=== PATIENT | female | born 1935 | race Caucasian/White ===

== ENCOUNTER 2018-07-07 12:18 | Inpatient (IN) | payer MEDICARE, MEDICAID ==
[2018-07-07 12:56] LABS: % BASOPHILS 0.7 % (0.0-2.0); % EOSINOPHILS 3.3 % (0.0-5.0); % MONOCYTES 8.3 % (2.0-10.0); % NEUTROPHILS 53.7 % (40.0-80.0); EOSINOPHILE ABSOLUTE 0.2 Th/cmm (0.1-0.4); HEMOGLOBIN 13.1 gm/dL (12-16); LYMPHOCYTE ABSOLUTE 2.3 Th/cmm (1.5-3.0); MEAN CELL VOLUME 82.8 fl (81-100); MEAN CORPUSCULAR HEMOGLOBIN 27.2 pg (27.0-31.0); MEAN CORPUSCULAR HGB CONC 32.8 pg (28.0-36.0); MEAN PLATELET VOLUME 7.1 fl; MONOCYTE ABSOLUTE 0.6 Th/cmm (0.3-1.0); NEUTROPHILE ABSOLUTE 3.8 Th/cmm (1.8-8.0); PLATELET COUNT 349 Th/cmm (150-400); RED BLOOD COUNT 4.83 Mil/cmm (3.80-5.20); RED CELL DISTRIBUTION WIDTH 12.7 % (11.5-20.0); WHITE BLOOD COUNT 6.9 Th/cmm (4.8-10.8)
[2018-07-07 13:28] LABS: URINE SOURCE CLEAN C
[2018-07-07 13:47] LABS: URINE BILIRUBIN NEGATIVE (NEGATIVE); URINE BLOOD NEGATIVE (NEGATIVE); URINE GLUCOSE (UA) NEGATIVE (NEGATIVE); URINE KETONE NEGATIVE (NEGATIVE); URINE LEUKOCYTE ESTERASE TRACE (NEGATIVE); URINE MICROSCOPIC INDICATED? YES; URINE NITRATE NEGATIVE (NEGATIVE); URINE PROTEIN NEGATIVE (NEGATIVE); URINE UROBILINOGEN 0.2 E.U./dL (0.2 - 1.0)
[2018-07-07 13:51] LABS: URINE COLOR YELLOW
[2018-07-07 13:52] LABS: URINE CLARITY HAZY (CLEAR)
[2018-07-07 13:53] LABS: URINE BACTERIA 2+ /hpf (NONE SEEN); URINE EPITHELIAL CELLS MODERATE /lpf (FEW); URINE RBC 0-2 /hpf (0-5)
[2018-07-07 14:01] LABS: AMPHETAMINE URINE NEGATIVE (NEGATIVE); BARBITURATES URINE NEGATIVE (NEGATIVE); BENZODIAZEPINES QUAL URINE NEGATIVE (NEGATIVE); CANNABINOID THC NEGATIVE (NEGATIVE); COCAINE METABOLITE QUAL URINE NEGATIVE (NEGATIVE); METHADONE URINE NEGATIVE (NEGATIVE); METHAMPHETAMINES QUAL URINE NEGATIVE (NEGATIVE); OPIATES (MORPHINE) QUAL. URINE NEGATIVE (NEGATIVE); PHENCYCLIDINE (PCP) URINE NEGATIVE (NEGATIVE); TRICYCLICS (TCA) QUAL. URINE NEGATIVE (NEGATIVE)
[2018-07-07 14:09] LABS: ALB/GLOB RATIO 0.8 (1.0-1.8); ALBUMIN 3.6 gm/dL (3.7-5.3); ANION GAP 16.3 (7.0-16.0); BUN - UREA NITROGEN 16 mg/dL (7-25); CALCIUM SERUM 10.3 mg/dL (8.6-10.3); CHLORIDE 102 mEq/L (98-107); CREATININE - SERUM 0.6 mg/dL (0.6-1.2); GLUCOSE 125 mg/dL (70-105); POTASSIUM SERUM 4.3 mEq/L (3.5-5.1); SODIUM SERUM 139 mEq/L (136-145)
[2018-07-07 14:10] LABS: ALKALINE PHOSPHATASE 71 U/L (34-104); BILIRUBIN,TOTAL 0.2 mg/dL (0.3-1.0); PHOSPHOROUS 3.6 mg/dL (2.5-5.0); SGOT 24 U/L (13-39); SGPT/ALT 23 U/L (7-52)
[2018-07-07 16:50] VITALS: BP 124/64
[2018-07-07 18:00] LABS: CHOLESTEROL 185 mg/dL (<200); HDL -HIGH DENSITY LIPOPROTEIN 37 mg/dL (23-92); TRIGLYCERIDES 268 mg/dL (<150)
--- NOTE | 2018-07-07 18:23 | ED Physician Chart ---
ED Chief Complaint/HPI - Patient Information Date Seen:: 07/07/18 Time Seen:: 12:36 Chief Complaint:: increased agitation History of Present Illness:: increased agitation Allergies:: Allergies Allergy/AdvReac Type Severity Reaction Status Date / Time No Known Allergies Allergy Verified 07/07/18 12:37 Vitals:: Vital Signs - 8 hr 07/07/18 07/07/18 07/07/18 12:36 12:39 13:28 Temp 98 F 98.8 F 98.8 F HR 65 66 68 RR 16 17 16 BP 141/58 139/45 144/55 O2 Sat % 99 97 97 Historian:: Family Member Review:: Nurse's Note Reviewed ED Review of Systems - Review of Systems General/Constitutional: No fever, No chills, No weight loss, No weakness, No diaphoresis, No edema, No loss of appetite Skin: No skin lesions, No rash, No bruising Head: No headache, No light-headedness Eyes: No loss of vision, No pain, No diplopia ENT: No earache, No nasal drainage, No sore throat, No tinnitus Neck: No neck pain, No swelling, No thyromegaly, No stiffness, No mass noted Cardio Vascular: No chest pain, No palpitations, No PND, No orthopnea, No edema Pulmonary: No SOB, No cough, No sputum, No wheezing GI: No nausea, No vomiting, No diarrhea, No pain, No melena, No hematochezia, No constipation, No hematemesis G/U: No dysuria, No frequency, No hematuria Musculoskeletal: No bone or joint pain, No back pain, No muscle pain Endocrine: No polyuria, No polydipsia Psychiatric: Other (dementia) ED Past Medical History - Past Medical History Obtainable: No Past Medical History: DM Psychiatricy History: Dementia Family Medical History - Family Member Mother History Unknown: Yes Ethnicity: Living Status: ED Physical Exam - Physical Examination General/Constitutional: Awake, Well-developed, well-nourished, Alert, No distress, Non-toxic appearing Head: Atraumatic Eyes: Lids, conjuctiva normal, PERRL, EOMI Skin: Nl inspection, No rash, No skin lesions, No ecchymosis, Well hydrated, No lymphadenopathy ENMT: External ears, nose nl Neck: Nontender, No nuchal rigidity Respiratory: Nl effort/Exclusion, Clear to Auscultation, No Wheeze/Rhonchi/Rales Cardio Vascular: RRR, No murmur, gallop, rubs, NL S1 S2 GI: No tenderness/rebounding/guarding, No organomegaly, No hernia, Normal BS's, No mass/bruits Other GI comments:: distended abdomen with rectus diastasis. : No CVA tenderness Extremities: No tenderness or effusion, Full ROM, normal strength in all extremities, No edema Neuro/Psych: Alert/oriented, Mood normal Misc: Normal back ED Labs/Radiology/EKG Results - Lab Results Results: Laboratory Tests 07/07/18 07/07/18 07/07/18 12:46 12:48 12:48 WBC 6.9 RBC 4.83 Hgb 13.1 Hct 40.0 L MCV 82.8 MCH 27.2 MCHC Differential 32.8 RDW 12.7 Plt Count 349 MPV 7.1 Neutrophils % 53.7 Lymphocytes % 34.0 Monocytes % 8.3 Eosinophils % 3.3 Basophils % 0.7 Sodium 139 Potassium 4.3 Chloride 102 Carbon Dioxide 25.0 Anion Gap 16.3 H BUN 16 Creatinine 0.6 Est GFR ( Amer) TNP Est GFR (Non-Af Amer) TNP BUN/Creatinine Ratio 26.7 Glucose 125 H Calcium 10.3 Phosphorus 3.6 Magnesium 2.0 Total Bilirubin 0.2 L AST 24 ALT 23 Alkaline Phosphatase 71 Total Protein 8.0 Albumin 3.6 L Globulin 4.4 Albumin/Globulin Ratio 0.8 L Triglycerides 268 H Cholesterol 185 LDL Cholesterol Direct 110 HDL Cholesterol 37 TSH Urine Source Urine Color Urine Clarity Urine pH Ur Specific [place] Urine Protein Urine Glucose (UA) Urine Ketones Urine Blood Urine Nitrate Urine Bilirubin Urine Urobilinogen Ur Leukocyte Esterase Urine RBC Urine WBC Ur Epithelial Cells Urine Bacteria Urine Opiates Screen Urine Methadone Screen Ur Barbiturates Screen Ur Tricyclics Screen Ur Phencyclidine Scrn Amphetamines Screen U Methamphetamines Scrn U Benzodiazepines Scrn U Cocaine Metab Screen U Cannabinoids Screen 07/07/18 07/07/18 07/07/18 12:48 12:50 12:50 WBC RBC Hgb Hct MCV MCH MCHC Differential RDW Plt Count MPV Neutrophils % Lymphocytes % Monocytes % Eosinophils % Basophils % Sodium Potassium Chloride Carbon Dioxide Anion Gap BUN Creatinine Est GFR ( Amer) Est GFR (Non-Af Amer) BUN/Creatinine Ratio Glucose Calcium Phosphorus Magnesium Total Bilirubin AST ALT Alkaline Phosphatase Total Protein Albumin Globulin Albumin/Globulin Ratio Triglycerides Cholesterol LDL Cholesterol Direct HDL Cholesterol TSH 4.18 Urine Source CLEAN C Urine Color YELLOW Urine Clarity HAZY Urine pH 6.0 Ur Specific [place] 1.015 Urine Protein NEGATIVE Urine Glucose (UA) NEGATIVE Urine Ketones NEGATIVE Urine Blood NEGATIVE Urine Nitrate NEGATIVE Urine Bilirubin NEGATIVE Urine Urobilinogen 0.2 Ur Leukocyte Esterase TRACE H Urine RBC 0-2 Urine WBC 6-10 H Ur Epithelial Cells MODERATE Urine Bacteria 2+ H Urine Opiates Screen NEGATIVE Urine Methadone Screen NEGATIVE Ur Barbiturates Screen NEGATIVE Ur Tricyclics Screen NEGATIVE Ur Phencyclidine Scrn NEGATIVE Amphetamines Screen NEGATIVE U Methamphetamines Scrn NEGATIVE U Benzodiazepines Scrn NEGATIVE U Cocaine Metab Screen NEGATIVE U Cannabinoids Screen NEGATIVE ED Assessment - Assessment General Assessment: PATIENT CLEARED FROM A MEDICAL STANDPOINT FOR GEROPSYCH. HAS A URINARY TRACT INFECTION. MEDICAL M.D. TO MAKE DECISION ON CONTINUED TREATMENT OF UTI. ED Septic Shock - . Is Septic Shock (SBP<90, OR Lactate>4 mmol\L) present?: No - <6hrs of presentation: Vital Signs: Vital Signs - 8 hr 07/07/18 07/07/18 07/07/18 12:36 12:39 13:28 Temp 98 F 98.8 F 98.8 F HR 65 66 68 RR 16 17 16 BP 141/58 139/45 144/55 O2 Sat % 99 97 97 ED Reassessment (Disposition) - Reassessment Reassessment Condition:: Unchanged - Diagnosis Diagnosis:: Increased agitation. Diabetes mellitus. Urinary tract infection. - Patient Disposition Discharge/Transfer:: Acute Care w/in this hosp Admitted to:: [facility] Condition at Disposition:: Stable, Unchanged
[2018-07-07] MEDS: INSULIN ASPART SLIDING SCALE 100 UNITS/ML UNIT SUBQ SCH (20:37)
--- NOTE | 2018-07-07 21:47 | History & Physical ---
ADMIT DATE: 07/07/2018 HISTORY OF PRESENT ILLNESS: The patient known to have history of hypertension, history of diabetes, on multiple medications, history of psychiatric problem, came for increasing agitation, was seen in the Emergency Room, was cleared and was admitted to the Geropsych Unit. The patient had no fever, no chills, no swelling, no other problem. The patient has history of dementia and diabetes and patient is on diabetic medication, hypertension medication as well as Lasix and potassium as well as Namenda. PHYSICAL EXAMINATION: GENERAL: The patient is alert, oriented, well-nourished female, not in acute distress. VITAL SIGNS: Noted. HEAD: Normal. ENT: Normal. NECK: Supple, nontender. LUNGS: Clear. CARDIOVASCULAR SYSTEM: S1, S2 heard. ABDOMEN: Soft. Bowel sounds are heard. CENTRAL NERVOUS SYSTEM: The patient is agitated, confused. LABORATORY DATA: White count was 6.9, triglycerides are high 268, and sugar was high. Urine showed bacteria and evidence of infection. DIAGNOSES: Acute agitation, psychiatric disorder, history of dementia, history of diabetes, history of hypertension, history of urinary tract infection was made. PLAN: The patient was started on antibiotic and I will follow medically and all the medications reconciled. JOB# [id number]
--- NOTE | 2018-07-08 03:28 | Psychiatric Evaluation ---
DATE OF SERVICE: 07/07/2018 SUBJECTIVE: Staff was spoken to. The patient is interviewed. IDENTIFYING DATA: The patient is an 83-year-old woman living with her family. Information obtained directly interviewing the patient and talking to her daughter who happened to be there by the bedside. As per the information, the patient has been having problem with the memory for the past 8 years. Lately, she has been having problem with her irritability and mood swings. The patient's family states that they are not able to deal with the patient, they want the patient to be placed at [place] and the patient has been reported to have urinary tract infection and increased agitation and hence the patient has been admitted over here for stabilization. PAST PSYCHIATRIC HISTORY: None. MEDICAL HISTORY AND PHYSICAL EXAMINATION: Requested by Dr. Rushing. SUBSTANCE ABUSE HISTORY: None. LEGAL PROBLEMS: None at this time. MENTAL STATUS EXAMINATION: The patient is an 83-year-old woman looking her stated age, superficially cooperative. Eye contact is poor. Mood is noted to be irritable. Affect is constricted. The patient has paranoia, but denies any command hallucinations. Insight and judgment at this time are noted to be still impaired. Impulse control is noted to be limited. The patient is still isolative and withdrawn. The patient has short-term as well as long-term memory deficits. DIAGNOSTIC IMPRESSION: AXIS I: IA: Psychosis, not otherwise specified. IB: Dementia and behavioral change, secondary trait. AXIS II: None. AXIS III: As per Dr. Rushing. IMMEDIATE TREATMENT PLAN: The patient is going to be observed on inpatient unit, provided with supportive psychotherapy. The patient is going to be closely monitored and encouraged to verbalize the concerns rather than to act out. Once stabilized, the patient is going to be discharged to [facility] to be followed up on an outpatient basis. JOB# [id number]
[2018-07-08] MEDS: INSULIN ASPART SLIDING SCALE 100 UNITS/ML UNIT SUBQ SCH ×4 (06:31→21:10)
[2018-07-08 07:04] LABS: % BASOPHILS 0.2 % (0.0-2.0); % EOSINOPHILS 4.9 % (0.0-5.0); % MONOCYTES 7.8 % (2.0-10.0); % NEUTROPHILS 59.1 % (40.0-80.0); EOSINOPHILE ABSOLUTE 0.3 Th/cmm (0.1-0.4); HEMATOCRIT 37.5 % (41.0-60); HEMOGLOBIN 12.5 gm/dL (12-16); LYMPHOCYTE ABSOLUTE 1.8 Th/cmm (1.5-3.0); MEAN CELL VOLUME 84.1 fl (81-100); MEAN CORPUSCULAR HEMOGLOBIN 28.1 pg (27.0-31.0); MEAN CORPUSCULAR HGB CONC 33.4 pg (28.0-36.0); MEAN PLATELET VOLUME 7.2 fl; MONOCYTE ABSOLUTE 0.5 Th/cmm (0.3-1.0); NEUTROPHILE ABSOLUTE 3.9 Th/cmm (1.8-8.0); PLATELET COUNT 307 Th/cmm (150-400); RED BLOOD COUNT 4.46 Mil/cmm (3.80-5.20); RED CELL DISTRIBUTION WIDTH 12.4 % (11.5-20.0); WHITE BLOOD COUNT 6.5 Th/cmm (4.8-10.8)
[2018-07-08] MEDS ORDERED: Non-Formulary Item 1 EA (Potassium Chloride [Potassium Chloride] 1 CAP) PO SCH (09:00)
[2018-07-08] MEDS: Potassium Chloride 10 mEq ER Tab PO SCH (09:00)
[2018-07-08] MEDS ORDERED: INSULIN GLARGINE HUM REC ANLOG 10 UNIT SUBQ SCH (09:00)
[2018-07-08] MEDS: Insulin Detemir 100 units/mL 10mL Vial SUBQ SCH (09:13)
--- NOTE | 2018-07-08 15:47 | Progress Notes ---
DATE: 07/08/2018 SUBJECTIVE: Staff was spoken to. The patient is interviewed. Mood is noted to be irritable. Affect is constricted. Insight and judgment at this time are noted to be still impaired. Impulse control is noted to be poor. Coping skills are also noted to be poor. The patient has been having difficult time to cope with the stress. ASSESSMENT: The patient is still depressed and confused. PLAN: To continue the patient with the supportive therapy. I encouraged the patient to verbalize the concerns rather than to act out. [facility]# [id number]
--- NOTE | 2018-07-08 17:29 | Consultation ---
DATE OF CONSULTATION: 07/08/2018 REFERRING PHYSICIAN: Syed Jones MD TYPE OF CONSULTATION: Psychology. HISTORY OF PRESENT ILLNESS: The patient is an 83-year-old female. The following is by record review and by the patient's self-report. The patient is being admitted due to irritability and mood swings. The patient lives with her family at home. The family states that they are having difficulty dealing with the patient and are requesting placement post discharge from [facility] unit. It is reported the patient has a UTI. The patient denied any suicidal ideation, plan or intention. The patient denies any hopelessness or helplessness. PAST MEDICAL HISTORY: Please see history and physical by Dr. Rushing. PAST PSYCHIATRIC HISTORY: Unknown. Records are unavailable. SUBSTANCE ABUSE HISTORY: The patient denies any history. PSYCHOSOCIAL HISTORY: The patient lives with her family at home. The patient states she is confucianist. The patient denied any history of physical or sexual abuse or any current legal problems. The patient did not answer questions about occupational or educational history. MENTAL STATUS EXAMINATION: The patient appears to be her stated age. The patient's attitude is mostly cooperative. Eye contact is fair to poor. Speech is delayed and soft. Mood is somewhat irritable. Affect is constricted. Thought process shows to be concrete. The patient was able to answer simple questions with a yes or no response. The patient denied any auditory or visual hallucinations. The patient denied any suicidal ideation, plan or intention. The patient denies any hopelessness or helplessness. There is evidence of some possible paranoid ideation. This needs further evaluation. The patient's behavior is redirectable on the unit. Impulse control is limited. Concentration is poor. The patient did not participate in the memory assessment. Sensorium is alert and oriented to self only. The patient did not participate in the interpretation of proverbs. Insight is poor. Judgment is compromised. DIAGNOSTIC IMPRESSION: [place] I: 1. Dementia with behavioral disturbance. 2. Provisional diagnosis of psychotic disorder, not otherwise specified. [place] II: Deferred. [place] III: Per Dr. Rushing. TREATMENT PLAN: The patient has been seen by Dr. Jones for psychiatric evaluation and for the management of the patient's psychotropic medications. We will provide supportive psychotherapy to include reality orientation, differentiation and integration. We will provide coping strategies for phase of life issues. We will encourage the patient to discuss with her family regarding possible placement along with the attending physician. We will encourage the patient to be able to demonstrate emotional and self-regulation prior to discharge. The patient seems to be able to respond well to andres-based beliefs for coping. We will recommend possible pastoral counseling as well. Thank you, Dr. Jones, for this consult and the opportunity to participate in this patient's care. [facility]# [id number] [facility]
--- NOTE | 2018-07-08 22:10 | Progress Notes ---
DATE: 07/08/2018 SUBJECTIVE: The patient was seen in the hallways sitting in a Gali chair. The patient appears to be comfortable, poor historian, episodes of forgetfulness, confusion. No behavioral issues noted. Otherwise, the patient appears to be in no acute distress. OBJECTIVE: VITAL SIGNS: Temperature is 97.2, heart rate of 62, blood pressure 126/52, respirations 20, 98% on room air. HEENT: Head is atraumatic and normocephalic. Eyes: Bilateral conjunctivae are clear. Bilateral pupils are equally round and reactive. NECK: Supple. No JVD. CARDIOVASCULAR: S1 and S2, without murmur. PULMONARY: Clear to auscultation. GASTROINTESTINAL: Soft and nontender without guarding. Positive bowel sounds. MUSCULOSKELETAL: No clubbing. No cyanosis noted. ASSESSMENT: 1. Dementia. 2. Diabetes. 3. Hypertension. 4. Arthritis. PLAN: We will continue to keep the patient inpatient. We will follow up with the psychiatrist to monitor the patient's condition and behavior. Treatment plans were discussed with the patient's nurse. Treatment plans were discussed with Dr. Rushing. JOB# [id number]
[2018-07-09] MEDS: INSULIN ASPART SLIDING SCALE 100 UNITS/ML UNIT SUBQ SCH ×4 (06:36→20:20)
--- NOTE | 2018-07-09 08:20 | Internal Medicine Prog Note ---
Internal Medicine Subjective - Subjective Patient seen and examined:: chart reviewed Patient is:: awake, confused Per staff patient has:: tolerating meds Internal Medicine Objective - Results Result Diagrams: 07/08/18 06:44 07/07/18 12:48 Recent Labs: Laboratory Last Values WBC 6.5 Th/cmm (4.8-10.8) 07/08/18 06:44 RBC 4.46 Mil/cmm (3.80-5.20) 07/08/18 06:44 Hgb 12.5 gm/dL (12-16) 07/08/18 06:44 Hct 37.5 % (41.0-60) L 07/08/18 06:44 MCV 84.1 fl (81-100) 07/08/18 06:44 MCH 28.1 pg (27.0-31.0) 07/08/18 06:44 MCHC Differential 33.4 pg (28.0-36.0) 07/08/18 06:44 RDW 12.4 % (11.5-20.0) 07/08/18 06:44 Plt Count 307 Th/cmm (150-400) 07/08/18 06:44 MPV 7.2 fl 07/08/18 06:44 Neutrophils % 59.1 % (40.0-80.0) 07/08/18 06:44 Lymphocytes % 28.0 % (20.0-50.0) 07/08/18 06:44 Monocytes % 7.8 % (2.0-10.0) 07/08/18 06:44 Eosinophils % 4.9 % (0.0-5.0) 07/08/18 06:44 Basophils % 0.2 % (0.0-2.0) 07/08/18 06:44 Sodium 139 mEq/L (136-145) 07/07/18 12:48 Potassium 4.3 mEq/L (3.5-5.1) 07/07/18 12:48 Chloride 102 mEq/L (98-107) 07/07/18 12:48 Carbon Dioxide 25.0 mEq/L (21.0-31.0) 07/07/18 12:48 Anion Gap 16.3 (7.0-16.0) H 07/07/18 12:48 BUN 16 mg/dL (7-25) 07/07/18 12:48 Creatinine 0.6 mg/dL (0.6-1.2) 07/07/18 12:48 Est GFR ( Amer) TNP 07/07/18 12:48 Est GFR (Non-Af Amer) TNP 07/07/18 12:48 BUN/Creatinine Ratio 26.7 07/07/18 12:48 Glucose 125 mg/dL (70-105) H 07/07/18 12:48 Calcium 10.3 mg/dL (8.6-10.3) 07/07/18 12:48 Phosphorus 3.6 mg/dL (2.5-5.0) 07/07/18 12:48 Magnesium 2.0 mg/dL (1.9-2.7) 07/07/18 12:48 Total Bilirubin 0.2 mg/dL (0.3-1.0) L 07/07/18 12:48 AST 24 U/L (13-39) 07/07/18 12:48 ALT 23 U/L (7-52) 07/07/18 12:48 Alkaline Phosphatase 71 U/L (34-104) 07/07/18 12:48 Total Protein 8.0 gm/dL (6.0-8.3) 07/07/18 12:48 Albumin 3.6 gm/dL (3.7-5.3) L 07/07/18 12:48 Globulin 4.4 gm/dL 07/07/18 12:48 Albumin/Globulin Ratio 0.8 (1.0-1.8) L 07/07/18 12:48 Triglycerides 268 mg/dL (<150) H 07/07/18 12:46 Cholesterol 185 mg/dL (<200) 07/07/18 12:46 LDL Cholesterol Direct 110 mg/dL (75-193) 07/07/18 12:46 HDL Cholesterol 37 mg/dL (23-92) 07/07/18 12:46 TSH 4.18 uIU/ml (0.34-5.60) 07/07/18 12:48 Urine Source CLEAN C 07/07/18 12:50 Urine Color YELLOW 07/07/18 12:50 Urine Clarity HAZY (CLEAR) 07/07/18 12:50 Urine pH 6.0 (4.6 - 8.0) 07/07/18 12:50 Ur Specific [place] 1.015 (1.005-1.030) 07/07/18 12:50 Urine Protein NEGATIVE mg/dL (NEGATIVE) 07/07/18 12:50 Urine Glucose (UA) NEGATIVE mg/dL (NEGATIVE) 07/07/18 12:50 Urine Ketones NEGATIVE mg/dL (NEGATIVE) 07/07/18 12:50 Urine Blood NEGATIVE (NEGATIVE) 07/07/18 12:50 Urine Nitrate NEGATIVE (NEGATIVE) 07/07/18 12:50 Urine Bilirubin NEGATIVE (NEGATIVE) 07/07/18 12:50 Urine Urobilinogen 0.2 E.U./dL (0.2 - 1.0) 07/07/18 12:50 Ur Leukocyte Esterase TRACE (NEGATIVE) H 07/07/18 12:50 Urine RBC 0-2 /hpf (0-5) 07/07/18 12:50 Urine WBC 6-10 /hpf (0-5) H 07/07/18 12:50 Ur Epithelial Cells MODERATE /lpf (FEW) 07/07/18 12:50 Urine Bacteria 2+ /hpf (NONE SEEN) H 07/07/18 12:50 Urine Opiates Screen NEGATIVE (NEGATIVE) 07/07/18 12:50 Urine Methadone Screen NEGATIVE (NEGATIVE) 07/07/18 12:50 Ur Barbiturates Screen NEGATIVE (NEGATIVE) 07/07/18 12:50 Ur Tricyclics Screen NEGATIVE (NEGATIVE) 07/07/18 12:50 Ur Phencyclidine Scrn NEGATIVE (NEGATIVE) 07/07/18 12:50 Amphetamines Screen NEGATIVE (NEGATIVE) 07/07/18 12:50 U Methamphetamines Scrn NEGATIVE (NEGATIVE) 07/07/18 12:50 U Benzodiazepines Scrn NEGATIVE (NEGATIVE) 07/07/18 12:50 U Cocaine Metab Screen NEGATIVE (NEGATIVE) 07/07/18 12:50 U Cannabinoids Screen NEGATIVE (NEGATIVE) 07/07/18 12:50 - Physical Exam Vitals and I&O: Vital Signs Temp 97.7 F 07/09/18 05:02 Pulse 64 07/09/18 05:02 Resp 19 07/09/18 05:02 BP 111/70 07/09/18 05:02 Pulse Ox 97 07/08/18 19:35 Intake & Output 07/08/18 07/09/18 07/09/18 19:59 06:59 18:59 Intake Total Balance Intake: Oral Other: # Voids # Bowel Movements Active Medications: Current Medications Furosemide (Lasix) 40 mg PO DAILY [facility] Stop: 09/06/18 08:59 Last Admin: 07/08/18 09:00 Dose: 40 mg Insulin Aspart (Novolog Insulin Sliding Scale) 0 units SUBQ ACHS [facility]; Protocol Stop: 09/05/18 20:59 Last Admin: 07/09/18 06:36 Dose: Not Given Insulin Detemir (Levemir Insulin) 10 units SUBQ DAILY [facility] Stop: 09/06/18 08:59 Last Admin: 07/08/18 09:13 Dose: 10 unit Lorazepam (Ativan) 0.5 mg PO Q6HR PRN; Protocol PRN Reason: Agitation Stop: 09/05/18 19:26 Memantine (Namenda) 5 mg PO DAILY [facility] Stop: 09/06/18 08:59 Last Admin: 07/08/18 08:59 Dose: 5 mg Metformin HCl (Glucophage) 850 mg PO BID [facility] Stop: 09/06/18 08:59 Last Admin: 07/08/18 16:58 Dose: 850 mg Nitrofurantoin Macrocrystals (Macrobid) 100 mg PO BID [facility]; Protocol Stop: 07/17/18 08:59 Last Admin: 07/08/18 16:58 Dose: 100 mg Potassium Chloride (Klor-Con) 10 meq PO DAILY [facility] Stop: 09/06/18 08:59 Last Admin: 07/08/18 09:00 Dose: 10 meq General: demented HEENT: NC/AT Neck: Supple Lungs: CTAB Cardiovascular: RRR Abdomen: soft, non-tender Extremities: clear, edema Internal Medicine Assmt/Plan - Assessment Assessment: dementia acute agitation h/o dm h/o htn h/o rthritis h/o uti - Plan Plan: as per psych will monitor
[2018-07-09] MEDS: Potassium Chloride 10 mEq ER Tab PO SCH (08:59)
[2018-07-09] MEDS: Insulin Detemir 100 units/mL 10mL Vial SUBQ SCH (08:59)
--- NOTE | 2018-07-10 02:54 | Progress Notes ---
DATE: 07/09/2018 PSYCHIATRIC PROGRESS NOTE SUBJECTIVE: Staff was spoken to. The patient is interviewed. Mood is noted to be anxious and coping skills are noted to be very poor. Insight and judgment are also noted to be very poor. The patient has been having difficult time to cope with the stress. No side effects to the medications are noted. ASSESSMENT AND PLAN: In view of the patient's depression, it is decided to add a low dose of the Lexapro and encouraged the patient to verbalize the concerns rather than to act out. JOB# [id number]
[2018-07-10] MEDS: INSULIN ASPART SLIDING SCALE 100 UNITS/ML UNIT SUBQ SCH ×5 (06:38→21:00)
[2018-07-10] MEDS: Potassium Chloride 10 mEq ER Tab PO SCH (09:18)
[2018-07-10] MEDS: Insulin Detemir 100 units/mL 10mL Vial SUBQ SCH (09:18)
--- NOTE | 2018-07-10 15:22 | Internal Medicine Prog Note ---
Internal Medicine Subjective - Subjective Patient seen and examined:: chart reviewed Patient is:: awake, confused, other (anxious ,confused ) Per staff patient has:: tolerating meds Internal Medicine Objective - Results Result Diagrams: 07/08/18 06:44 07/07/18 12:48 Recent Labs: Laboratory Last Values WBC 6.5 Th/cmm (4.8-10.8) 07/08/18 06:44 RBC 4.46 Mil/cmm (3.80-5.20) 07/08/18 06:44 Hgb 12.5 gm/dL (12-16) 07/08/18 06:44 Hct 37.5 % (41.0-60) L 07/08/18 06:44 MCV 84.1 fl (81-100) 07/08/18 06:44 MCH 28.1 pg (27.0-31.0) 07/08/18 06:44 MCHC Differential 33.4 pg (28.0-36.0) 07/08/18 06:44 RDW 12.4 % (11.5-20.0) 07/08/18 06:44 Plt Count 307 Th/cmm (150-400) 07/08/18 06:44 MPV 7.2 fl 07/08/18 06:44 Neutrophils % 59.1 % (40.0-80.0) 07/08/18 06:44 Lymphocytes % 28.0 % (20.0-50.0) 07/08/18 06:44 Monocytes % 7.8 % (2.0-10.0) 07/08/18 06:44 Eosinophils % 4.9 % (0.0-5.0) 07/08/18 06:44 Basophils % 0.2 % (0.0-2.0) 07/08/18 06:44 Sodium 139 mEq/L (136-145) 07/07/18 12:48 Potassium 4.3 mEq/L (3.5-5.1) 07/07/18 12:48 Chloride 102 mEq/L (98-107) 07/07/18 12:48 Carbon Dioxide 25.0 mEq/L (21.0-31.0) 07/07/18 12:48 Anion Gap 16.3 (7.0-16.0) H 07/07/18 12:48 BUN 16 mg/dL (7-25) 07/07/18 12:48 Creatinine 0.6 mg/dL (0.6-1.2) 07/07/18 12:48 Est GFR ( Amer) TNP 07/07/18 12:48 Est GFR (Non-Af Amer) TNP 07/07/18 12:48 BUN/Creatinine Ratio 26.7 07/07/18 12:48 Glucose 125 mg/dL (70-105) H 07/07/18 12:48 Calcium 10.3 mg/dL (8.6-10.3) 07/07/18 12:48 Phosphorus 3.6 mg/dL (2.5-5.0) 07/07/18 12:48 Magnesium 2.0 mg/dL (1.9-2.7) 07/07/18 12:48 Total Bilirubin 0.2 mg/dL (0.3-1.0) L 07/07/18 12:48 AST 24 U/L (13-39) 07/07/18 12:48 ALT 23 U/L (7-52) 07/07/18 12:48 Alkaline Phosphatase 71 U/L (34-104) 07/07/18 12:48 Total Protein 8.0 gm/dL (6.0-8.3) 07/07/18 12:48 Albumin 3.6 gm/dL (3.7-5.3) L 07/07/18 12:48 Globulin 4.4 gm/dL 07/07/18 12:48 Albumin/Globulin Ratio 0.8 (1.0-1.8) L 07/07/18 12:48 Triglycerides 268 mg/dL (<150) H 07/07/18 12:46 Cholesterol 185 mg/dL (<200) 07/07/18 12:46 LDL Cholesterol Direct 110 mg/dL (75-193) 07/07/18 12:46 HDL Cholesterol 37 mg/dL (23-92) 07/07/18 12:46 TSH 4.18 uIU/ml (0.34-5.60) 07/07/18 12:48 Urine Source CLEAN C 07/07/18 12:50 Urine Color YELLOW 07/07/18 12:50 Urine Clarity HAZY (CLEAR) 07/07/18 12:50 Urine pH 6.0 (4.6 - 8.0) 07/07/18 12:50 Ur Specific [place] 1.015 (1.005-1.030) 07/07/18 12:50 Urine Protein NEGATIVE mg/dL (NEGATIVE) 07/07/18 12:50 Urine Glucose (UA) NEGATIVE mg/dL (NEGATIVE) 07/07/18 12:50 Urine Ketones NEGATIVE mg/dL (NEGATIVE) 07/07/18 12:50 Urine Blood NEGATIVE (NEGATIVE) 07/07/18 12:50 Urine Nitrate NEGATIVE (NEGATIVE) 07/07/18 12:50 Urine Bilirubin NEGATIVE (NEGATIVE) 07/07/18 12:50 Urine Urobilinogen 0.2 E.U./dL (0.2 - 1.0) 07/07/18 12:50 Ur Leukocyte Esterase TRACE (NEGATIVE) H 07/07/18 12:50 Urine RBC 0-2 /hpf (0-5) 07/07/18 12:50 Urine WBC 6-10 /hpf (0-5) H 07/07/18 12:50 Ur Epithelial Cells MODERATE /lpf (FEW) 07/07/18 12:50 Urine Bacteria 2+ /hpf (NONE SEEN) H 07/07/18 12:50 Urine Opiates Screen NEGATIVE (NEGATIVE) 07/07/18 12:50 Urine Methadone Screen NEGATIVE (NEGATIVE) 07/07/18 12:50 Ur Barbiturates Screen NEGATIVE (NEGATIVE) 07/07/18 12:50 Ur Tricyclics Screen NEGATIVE (NEGATIVE) 07/07/18 12:50 Ur Phencyclidine Scrn NEGATIVE (NEGATIVE) 07/07/18 12:50 Amphetamines Screen NEGATIVE (NEGATIVE) 07/07/18 12:50 U Methamphetamines Scrn NEGATIVE (NEGATIVE) 07/07/18 12:50 U Benzodiazepines Scrn NEGATIVE (NEGATIVE) 07/07/18 12:50 U Cocaine Metab Screen NEGATIVE (NEGATIVE) 07/07/18 12:50 U Cannabinoids Screen NEGATIVE (NEGATIVE) 07/07/18 12:50 - Physical Exam Vitals and I&O: Vital Signs Temp 97.9 F 07/10/18 14:00 Pulse 75 07/10/18 14:00 Resp 18 07/10/18 14:00 BP 96/57 07/10/18 14:00 Pulse Ox 95 07/10/18 14:00 Intake & Output 07/09/18 07/10/1805/18 18:59 06:59 18:59 Intake Total 480 Balance 480 Intake: Oral 480 Other: # Voids 2 2 # Bowel Movements 1 Active Medications: Current Medications Escitalopram Oxalate (Lexapro) 5 mg PO DAILY [facility]; Protocol Stop: 09/08/18 08:59 Furosemide (Lasix) 40 mg PO DAILY [facility] Stop: 09/06/18 08:59 Last Admin: 07/10/18 09:19 Dose: 40 mg Insulin Aspart (Novolog Insulin Sliding Scale) 0 units SUBQ ACHS [facility]; Protocol Stop: 09/05/18 20:59 Last Admin: 07/10/18 11:32 Dose: 2 units Insulin Detemir (Levemir Insulin) 10 units SUBQ DAILY [facility] Stop: 09/06/18 08:59 Last Admin: 07/10/18 09:18 Dose: 10 unit Lorazepam (Ativan) 0.5 mg PO Q6HR PRN; Protocol PRN Reason: Agitation Stop: 09/05/18 19:26 Memantine (Namenda) 5 mg PO DAILY [facility] Stop: 09/06/18 08:59 Last Admin: 07/10/18 09:18 Dose: 5 mg Metformin HCl (Glucophage) 850 mg PO BID [facility] Stop: 09/06/18 08:59 Last Admin: 07/10/18 09:18 Dose: 850 mg Nitrofurantoin Macrocrystals (Macrobid) 100 mg PO BID [facility]; Protocol Stop: 07/17/18 08:59 Last Admin: 07/10/18 09:19 Dose: 100 mg Potassium Chloride (Klor-Con) 10 meq PO DAILY [facility] Stop: 09/06/18 08:59 Last Admin: 07/10/18 09:18 Dose: 10 meq General: demented HEENT: NC/AT Neck: Supple Lungs: CTAB Cardiovascular: RRR Abdomen: soft, non-tender Extremities: clear, edema Internal Medicine Assmt/Plan - Assessment Assessment: dementia acute agitation h/o dm h/o htn h/o rthritis h/o uti - Plan Plan: as per psych will monitor as problems arise
--- NOTE | 2018-07-10 21:31 | Progress Notes ---
DATE: 07/10/2018 PSYCHIATRIC PROGRESS NOTE SUBJECTIVE: Staff was spoken to. The patient is interviewed. Mood is noted to be anxious. Affect is constricted. The patient's coping skills are noted to be still poor. Insight and judgment also noted to be still impaired. No side effects to the medications are noted. The patient has been having difficult time to cope with the stress as the patient is not ready yet for the placement. ASSESSMENT: The patient is still depressed. PLAN: To continue the patient with the supportive therapy, encouraged the patient to verbalize the concerns rather than to act out. JOB# [id number]
[2018-07-11] MEDS: INSULIN ASPART SLIDING SCALE 100 UNITS/ML UNIT SUBQ SCH ×4 (06:49→20:40)
[2018-07-11] MEDS: Escitalopram Oxalate 5 mg Tab PO SCH (09:26)
[2018-07-11] MEDS: Potassium Chloride 10 mEq ER Tab PO SCH (09:27)
[2018-07-11] MEDS: Insulin Detemir 100 units/mL 10mL Vial SUBQ SCH (09:29)
--- NOTE | 2018-07-11 12:24 | Internal Medicine Prog Note ---
Internal Medicine Subjective - Subjective Service Date: 07/11/18 Patient is:: awake, confused, other (anxious ,confused ) Per staff patient has:: tolerating meds Internal Medicine Objective - Results Result Diagrams: 07/08/18 06:44 07/07/18 12:48 Recent Labs: Laboratory Last Values WBC 6.5 Th/cmm (4.8-10.8) 07/08/18 06:44 RBC 4.46 Mil/cmm (3.80-5.20) 07/08/18 06:44 Hgb 12.5 gm/dL (12-16) 07/08/18 06:44 Hct 37.5 % (41.0-60) L 07/08/18 06:44 MCV 84.1 fl (81-100) 07/08/18 06:44 MCH 28.1 pg (27.0-31.0) 07/08/18 06:44 MCHC Differential 33.4 pg (28.0-36.0) 07/08/18 06:44 RDW 12.4 % (11.5-20.0) 07/08/18 06:44 Plt Count 307 Th/cmm (150-400) 07/08/18 06:44 MPV 7.2 fl 07/08/18 06:44 Neutrophils % 59.1 % (40.0-80.0) 07/08/18 06:44 Lymphocytes % 28.0 % (20.0-50.0) 07/08/18 06:44 Monocytes % 7.8 % (2.0-10.0) 07/08/18 06:44 Eosinophils % 4.9 % (0.0-5.0) 07/08/18 06:44 Basophils % 0.2 % (0.0-2.0) 07/08/18 06:44 Sodium 139 mEq/L (136-145) 07/07/18 12:48 Potassium 4.3 mEq/L (3.5-5.1) 07/07/18 12:48 Chloride 102 mEq/L (98-107) 07/07/18 12:48 Carbon Dioxide 25.0 mEq/L (21.0-31.0) 07/07/18 12:48 Anion Gap 16.3 (7.0-16.0) H 07/07/18 12:48 BUN 16 mg/dL (7-25) 07/07/18 12:48 Creatinine 0.6 mg/dL (0.6-1.2) 07/07/18 12:48 Est GFR ( Amer) TNP 07/07/18 12:48 Est GFR (Non-Af Amer) TNP 07/07/18 12:48 BUN/Creatinine Ratio 26.7 07/07/18 12:48 Glucose 125 mg/dL (70-105) H 07/07/18 12:48 POC Glucose 139 MG/DL (70 - 105) H 07/11/18 11:40 Calcium 10.3 mg/dL (8.6-10.3) 07/07/18 12:48 Phosphorus 3.6 mg/dL (2.5-5.0) 07/07/18 12:48 Magnesium 2.0 mg/dL (1.9-2.7) 07/07/18 12:48 Total Bilirubin 0.2 mg/dL (0.3-1.0) L 07/07/18 12:48 AST 24 U/L (13-39) 07/07/18 12:48 ALT 23 U/L (7-52) 07/07/18 12:48 Alkaline Phosphatase 71 U/L (34-104) 07/07/18 12:48 Total Protein 8.0 gm/dL (6.0-8.3) 07/07/18 12:48 Albumin 3.6 gm/dL (3.7-5.3) L 07/07/18 12:48 Globulin 4.4 gm/dL 07/07/18 12:48 Albumin/Globulin Ratio 0.8 (1.0-1.8) L 07/07/18 12:48 Triglycerides 268 mg/dL (<150) H 07/07/18 12:46 Cholesterol 185 mg/dL (<200) 07/07/18 12:46 LDL Cholesterol Direct 110 mg/dL (75-193) 07/07/18 12:46 HDL Cholesterol 37 mg/dL (23-92) 07/07/18 12:46 TSH 4.18 uIU/ml (0.34-5.60) 07/07/18 12:48 Urine Source CLEAN C 07/07/18 12:50 Urine Color YELLOW 07/07/18 12:50 Urine Clarity HAZY (CLEAR) 07/07/18 12:50 Urine pH 6.0 (4.6 - 8.0) 07/07/18 12:50 Ur Specific [place] 1.015 (1.005-1.030) 07/07/18 12:50 Urine Protein NEGATIVE mg/dL (NEGATIVE) 07/07/18 12:50 Urine Glucose (UA) NEGATIVE mg/dL (NEGATIVE) 07/07/18 12:50 Urine Ketones NEGATIVE mg/dL (NEGATIVE) 07/07/18 12:50 Urine Blood NEGATIVE (NEGATIVE) 07/07/18 12:50 Urine Nitrate NEGATIVE (NEGATIVE) 07/07/18 12:50 Urine Bilirubin NEGATIVE (NEGATIVE) 07/07/18 12:50 Urine Urobilinogen 0.2 E.U./dL (0.2 - 1.0) 07/07/18 12:50 Ur Leukocyte Esterase TRACE (NEGATIVE) H 07/07/18 12:50 Urine RBC 0-2 /hpf (0-5) 07/07/18 12:50 Urine WBC 6-10 /hpf (0-5) H 07/07/18 12:50 Ur Epithelial Cells MODERATE /lpf (FEW) 07/07/18 12:50 Urine Bacteria 2+ /hpf (NONE SEEN) H 07/07/18 12:50 Urine Opiates Screen NEGATIVE (NEGATIVE) 07/07/18 12:50 Urine Methadone Screen NEGATIVE (NEGATIVE) 07/07/18 12:50 Ur Barbiturates Screen NEGATIVE (NEGATIVE) 07/07/18 12:50 Ur Tricyclics Screen NEGATIVE (NEGATIVE) 07/07/18 12:50 Ur Phencyclidine Scrn NEGATIVE (NEGATIVE) 07/07/18 12:50 Amphetamines Screen NEGATIVE (NEGATIVE) 07/07/18 12:50 U Methamphetamines Scrn NEGATIVE (NEGATIVE) 07/07/18 12:50 U Benzodiazepines Scrn NEGATIVE (NEGATIVE) 07/07/18 12:50 U Cocaine Metab Screen NEGATIVE (NEGATIVE) 07/07/18 12:50 U Cannabinoids Screen NEGATIVE (NEGATIVE) 07/07/18 12:50 - Physical Exam Vitals and I&O: Vital Signs Temp 97.2 F 07/11/18 06:08 Pulse 69 07/11/18 06:08 Resp 18 07/11/18 06:08 BP 131/74 11/06/18 09:28 Pulse Ox 98 07/11/18 06:08 Intake & Output 07/10/1818 07/11/18 18:59 06:59 18:59 Intake Total 1500 480 Balance 1500 480 Intake: Oral 1500 480 Other: # Voids 3 2 # Bowel Movements 1 1 Active Medications: Current Medications Escitalopram Oxalate (Lexapro) 5 mg PO DAILY [facility]; Protocol Stop: 09/09/18 08:59 Last Admin: 07/11/18 09:26 Dose: 5 mg Furosemide (Lasix) 40 mg PO DAILY [facility] Stop: 09/06/18 08:59 Last Admin: 07/11/18 09:28 Dose: 40 mg Insulin Aspart (Novolog Insulin Sliding Scale) 0 units SUBQ ACHS [facility]; Protocol Stop: 09/05/18 20:59 Last Admin: 07/11/18 11:45 Dose: Not Given Insulin Detemir (Levemir Insulin) 10 units SUBQ DAILY [facility] Stop: 09/06/18 08:59 Last Admin: 07/11/18 09:29 Dose: Not Given Lorazepam (Ativan) 0.5 mg PO Q6HR PRN; Protocol PRN Reason: Agitation Stop: 09/05/18 19:26 Memantine (Namenda) 5 mg PO DAILY [facility] Stop: 09/06/18 08:59 Last Admin: 07/11/18 09:28 Dose: 5 mg Metformin HCl (Glucophage) 850 mg PO BID [facility] Stop: 09/06/18 08:59 Last Admin: 07/11/18 09:27 Dose: 850 mg Nitrofurantoin Macrocrystals (Macrobid) 100 mg PO BID [facility]; Protocol Stop: 07/17/18 08:59 Last Admin: 07/11/18 09:27 Dose: 100 mg Potassium Chloride (Klor-Con) 10 meq PO DAILY [facility] Stop: 09/06/18 08:59 Last Admin: 07/11/18 09:27 Dose: 10 meq General: demented HEENT: NC/AT Neck: Supple Lungs: CTAB Cardiovascular: RRR Abdomen: soft, non-tender Extremities: clear, edema
--- NOTE | 2018-07-12 00:15 | Progress Notes ---
DATE: 07/11/2018 SUBJECTIVE: Staff was spoken to. The patient is interviewed. Mood is noted to be anxious and depressed. Affect is appropriate. Coping skills are noted to be improving. No side effects to the medications are noted. The patient's urinary tract infection is being treated with antibiotics. The patient's sleep and appetite are noted to be improving. No side effects to the medications are noted. ASSESSMENT: The patient is stabilizing. PLAN: To continue the patient with the supportive therapy, encouraged the patient to verbalize the concerns and work with the family with regard to the placement of this patient. JOB# [id number]
[2018-07-12] MEDS: INSULIN ASPART SLIDING SCALE 100 UNITS/ML UNIT SUBQ SCH ×4 (06:40→20:38)
[2018-07-12] MEDS: Potassium Chloride 10 mEq ER Tab PO SCH (08:30)
[2018-07-12] MEDS: Escitalopram Oxalate 5 mg Tab PO SCH (08:30)
[2018-07-12] MEDS: Insulin Detemir 100 units/mL 10mL Vial SUBQ SCH (09:01)
--- NOTE | 2018-07-12 11:36 | Internal Medicine Prog Note ---
Internal Medicine Subjective - Subjective Patient seen and examined:: chart reviewed Patient is:: awake, confused, other Per staff patient has:: no adverse event, tolerating meds Internal Medicine Objective - Results Result Diagrams: 07/08/18 06:44 07/07/18 12:48 Recent Labs: Laboratory Last Values WBC 6.5 Th/cmm (4.8-10.8) 07/08/18 06:44 RBC 4.46 Mil/cmm (3.80-5.20) 07/08/18 06:44 Hgb 12.5 gm/dL (12-16) 07/08/18 06:44 Hct 37.5 % (41.0-60) L 07/08/18 06:44 MCV 84.1 fl (81-100) 07/08/18 06:44 MCH 28.1 pg (27.0-31.0) 07/08/18 06:44 MCHC Differential 33.4 pg (28.0-36.0) 07/08/18 06:44 RDW 12.4 % (11.5-20.0) 07/08/18 06:44 Plt Count 307 Th/cmm (150-400) 07/08/18 06:44 MPV 7.2 fl 07/08/18 06:44 Neutrophils % 59.1 % (40.0-80.0) 07/08/18 06:44 Lymphocytes % 28.0 % (20.0-50.0) 07/08/18 06:44 Monocytes % 7.8 % (2.0-10.0) 07/08/18 06:44 Eosinophils % 4.9 % (0.0-5.0) 07/08/18 06:44 Basophils % 0.2 % (0.0-2.0) 07/08/18 06:44 Sodium 139 mEq/L (136-145) 07/07/18 12:48 Potassium 4.3 mEq/L (3.5-5.1) 07/07/18 12:48 Chloride 102 mEq/L (98-107) 07/07/18 12:48 Carbon Dioxide 25.0 mEq/L (21.0-31.0) 07/07/18 12:48 Anion Gap 16.3 (7.0-16.0) H 07/07/18 12:48 BUN 16 mg/dL (7-25) 07/07/18 12:48 Creatinine 0.6 mg/dL (0.6-1.2) 07/07/18 12:48 Est GFR ( Amer) TNP 07/07/18 12:48 Est GFR (Non-Af Amer) TNP 07/07/18 12:48 BUN/Creatinine Ratio 26.7 07/07/18 12:48 Glucose 125 mg/dL (70-105) H 07/07/18 12:48 POC Glucose 222 MG/DL (70 - 105) H 07/12/18 11:21 Calcium 10.3 mg/dL (8.6-10.3) 07/07/18 12:48 Phosphorus 3.6 mg/dL (2.5-5.0) 07/07/18 12:48 Magnesium 2.0 mg/dL (1.9-2.7) 07/07/18 12:48 Total Bilirubin 0.2 mg/dL (0.3-1.0) L 07/07/18 12:48 AST 24 U/L (13-39) 07/07/18 12:48 ALT 23 U/L (7-52) 07/07/18 12:48 Alkaline Phosphatase 71 U/L (34-104) 07/07/18 12:48 Total Protein 8.0 gm/dL (6.0-8.3) 07/07/18 12:48 Albumin 3.6 gm/dL (3.7-5.3) L 07/07/18 12:48 Globulin 4.4 gm/dL 07/07/18 12:48 Albumin/Globulin Ratio 0.8 (1.0-1.8) L 07/07/18 12:48 Triglycerides 268 mg/dL (<150) H 07/07/18 12:46 Cholesterol 185 mg/dL (<200) 07/07/18 12:46 LDL Cholesterol Direct 110 mg/dL (75-193) 07/07/18 12:46 HDL Cholesterol 37 mg/dL (23-92) 07/07/18 12:46 TSH 4.18 uIU/ml (0.34-5.60) 07/07/18 12:48 Urine Source CLEAN C 07/07/18 12:50 Urine Color YELLOW 07/07/18 12:50 Urine Clarity HAZY (CLEAR) 07/07/18 12:50 Urine pH 6.0 (4.6 - 8.0) 07/07/18 12:50 Ur Specific [place] 1.015 (1.005-1.030) 07/07/18 12:50 Urine Protein NEGATIVE mg/dL (NEGATIVE) 07/07/18 12:50 Urine Glucose (UA) NEGATIVE mg/dL (NEGATIVE) 07/07/18 12:50 Urine Ketones NEGATIVE mg/dL (NEGATIVE) 07/07/18 12:50 Urine Blood NEGATIVE (NEGATIVE) 07/07/18 12:50 Urine Nitrate NEGATIVE (NEGATIVE) 07/07/18 12:50 Urine Bilirubin NEGATIVE (NEGATIVE) 07/07/18 12:50 Urine Urobilinogen 0.2 E.U./dL (0.2 - 1.0) 07/07/18 12:50 Ur Leukocyte Esterase TRACE (NEGATIVE) H 07/07/18 12:50 Urine RBC 0-2 /hpf (0-5) 07/07/18 12:50 Urine WBC 6-10 /hpf (0-5) H 07/07/18 12:50 Ur Epithelial Cells MODERATE /lpf (FEW) 07/07/18 12:50 Urine Bacteria 2+ /hpf (NONE SEEN) H 07/07/18 12:50 Urine Opiates Screen NEGATIVE (NEGATIVE) 07/07/18 12:50 Urine Methadone Screen NEGATIVE (NEGATIVE) 07/07/18 12:50 Ur Barbiturates Screen NEGATIVE (NEGATIVE) 07/07/18 12:50 Ur Tricyclics Screen NEGATIVE (NEGATIVE) 07/07/18 12:50 Ur Phencyclidine Scrn NEGATIVE (NEGATIVE) 07/07/18 12:50 Amphetamines Screen NEGATIVE (NEGATIVE) 07/07/18 12:50 U Methamphetamines Scrn NEGATIVE (NEGATIVE) 07/07/18 12:50 U Benzodiazepines Scrn NEGATIVE (NEGATIVE) 07/07/18 12:50 U Cocaine Metab Screen NEGATIVE (NEGATIVE) 07/07/18 12:50 U Cannabinoids Screen NEGATIVE (NEGATIVE) 07/07/18 12:50 - Physical Exam Vitals and I&O: Vital Signs Temp 97.4 F 07/11/18 20:13 Pulse 71 07/11/18 20:13 Resp 18 07/11/18 20:13 BP 138/69 07/11/18 20:13 Pulse Ox 97 07/11/18 20:13 Intake & Output 07/11/18 07/12/18 07/12/18 18:59 06:59 18:59 Intake Total 1500 120 Balance 1500 120 Intake: Oral 1500 120 Other: # Voids 3 1 # Bowel Movements 1 Active Medications: Current Medications Escitalopram Oxalate (Lexapro) 5 mg PO DAILY [facility]; Protocol Stop: 09/09/18 08:59 Last Admin: 07/12/18 08:30 Dose: 5 mg Furosemide (Lasix) 40 mg PO DAILY [facility] Stop: 09/06/18 08:59 Last Admin: 07/12/18 08:30 Dose: Not Given Insulin Aspart (Novolog Insulin Sliding Scale) 0 units SUBQ ACHS [facility]; Protocol Stop: 09/05/18 20:59 Last Admin: 07/12/18 06:40 Dose: Not Given Insulin Detemir (Levemir Insulin) 10 units SUBQ DAILY [facility] Stop: 09/06/18 08:59 Last Admin: 07/12/18 09:01 Dose: 10 unit Lorazepam (Ativan) 0.5 mg PO Q6HR PRN; Protocol PRN Reason: Agitation Stop: 09/05/18 19:26 Memantine (Namenda) 5 mg PO DAILY [facility] Stop: 09/06/18 08:59 Last Admin: 07/12/18 08:30 Dose: 5 mg Metformin HCl (Glucophage) 850 mg PO BID [facility] Stop: 09/06/18 08:59 Last Admin: 07/12/18 08:30 Dose: 850 mg Nitrofurantoin Macrocrystals (Macrobid) 100 mg PO BID [facility]; Protocol Stop: 07/17/18 08:59 Last Admin: 07/12/18 08:30 Dose: 100 mg Potassium Chloride (Klor-Con) 10 meq PO DAILY [facility] Stop: 09/06/18 08:59 Last Admin: 07/12/18 08:30 Dose: 10 meq General: demented HEENT: NC/AT Neck: Supple Lungs: CTAB Cardiovascular: RRR Abdomen: soft, non-tender Extremities: clear, edema Internal Medicine Assmt/Plan - Assessment Assessment: dementia acute agitation h/o dm h/o htn h/o rthritis h/o uti - Plan Plan: as per psych will monitor as problems arise
[2018-07-12] MEDS ORDERED: Magnesium Hydroxide (MOM) 30 mL UDC PO PRN (22:17)
--- NOTE | 2018-07-13 03:44 | Progress Notes ---
DATE: 07/12/2018 SUBJECTIVE: Staff was spoken to. The patient is interviewed. Mood is noted to be irritable. Affect is constricted. Coping skills at this time are noted to very poor. Insight and judgment are also noted to be limited. The patient has been having difficult time to cope with the stress. No side effects to the medications are noted. The patient however is not presenting with any major behavioral problems in here. ASSESSMENT: The patient is still demented. PLAN: To continue the patient with the supportive therapy and discharge the patient when placement is available. JOB# [id number]
[2018-07-13] MEDS: INSULIN ASPART SLIDING SCALE 100 UNITS/ML UNIT SUBQ SCH (06:40)
[2018-07-13] MEDS: Escitalopram Oxalate 5 mg Tab PO SCH (09:03)
[2018-07-13] MEDS: Potassium Chloride 10 mEq ER Tab PO SCH (09:03)
[2018-07-13] MEDS: Insulin Detemir 100 units/mL 10mL Vial SUBQ SCH (09:04)
--- NOTE | 2018-07-13 13:40 | Internal Medicine Prog Note ---
Internal Medicine Subjective - Subjective Service Date: 07/13/18 Patient is:: awake, confused, other Per staff patient has:: no adverse event, tolerating meds Internal Medicine Objective - Results Result Diagrams: 07/08/18 06:44 07/07/18 12:48 Recent Labs: Laboratory Last Values WBC 6.5 Th/cmm (4.8-10.8) 07/08/18 06:44 RBC 4.46 Mil/cmm (3.80-5.20) 07/08/18 06:44 Hgb 12.5 gm/dL (12-16) 07/08/18 06:44 Hct 37.5 % (41.0-60) L 07/08/18 06:44 MCV 84.1 fl (81-100) 07/08/18 06:44 MCH 28.1 pg (27.0-31.0) 07/08/18 06:44 MCHC Differential 33.4 pg (28.0-36.0) 07/08/18 06:44 RDW 12.4 % (11.5-20.0) 07/08/18 06:44 Plt Count 307 Th/cmm (150-400) 07/08/18 06:44 MPV 7.2 fl 07/08/18 06:44 Neutrophils % 59.1 % (40.0-80.0) 07/08/18 06:44 Lymphocytes % 28.0 % (20.0-50.0) 07/08/18 06:44 Monocytes % 7.8 % (2.0-10.0) 07/08/18 06:44 Eosinophils % 4.9 % (0.0-5.0) 07/08/18 06:44 Basophils % 0.2 % (0.0-2.0) 07/08/18 06:44 Sodium 139 mEq/L (136-145) 07/07/18 12:48 Potassium 4.3 mEq/L (3.5-5.1) 07/07/18 12:48 Chloride 102 mEq/L (98-107) 07/07/18 12:48 Carbon Dioxide 25.0 mEq/L (21.0-31.0) 07/07/18 12:48 Anion Gap 16.3 (7.0-16.0) H 07/07/18 12:48 BUN 16 mg/dL (7-25) 07/07/18 12:48 Creatinine 0.6 mg/dL (0.6-1.2) 07/07/18 12:48 Est GFR ( Amer) TNP 07/07/18 12:48 Est GFR (Non-Af Amer) TNP 07/07/18 12:48 BUN/Creatinine Ratio 26.7 07/07/18 12:48 Glucose 125 mg/dL (70-105) H 07/07/18 12:48 POC Glucose 100 MG/DL (70 - 105) 07/13/18 06:04 Calcium 10.3 mg/dL (8.6-10.3) 07/07/18 12:48 Phosphorus 3.6 mg/dL (2.5-5.0) 07/07/18 12:48 Magnesium 2.0 mg/dL (1.9-2.7) 07/07/18 12:48 Total Bilirubin 0.2 mg/dL (0.3-1.0) L 07/07/18 12:48 AST 24 U/L (13-39) 07/07/18 12:48 ALT 23 U/L (7-52) 07/07/18 12:48 Alkaline Phosphatase 71 U/L (34-104) 07/07/18 12:48 Total Protein 8.0 gm/dL (6.0-8.3) 07/07/18 12:48 Albumin 3.6 gm/dL (3.7-5.3) L 07/07/18 12:48 Globulin 4.4 gm/dL 07/07/18 12:48 Albumin/Globulin Ratio 0.8 (1.0-1.8) L 07/07/18 12:48 Triglycerides 268 mg/dL (<150) H 07/07/18 12:46 Cholesterol 185 mg/dL (<200) 07/07/18 12:46 LDL Cholesterol Direct 110 mg/dL (75-193) 07/07/18 12:46 HDL Cholesterol 37 mg/dL (23-92) 07/07/18 12:46 TSH 4.18 uIU/ml (0.34-5.60) 07/07/18 12:48 Urine Source CLEAN C 07/07/18 12:50 Urine Color YELLOW 07/07/18 12:50 Urine Clarity HAZY (CLEAR) 07/07/18 12:50 Urine pH 6.0 (4.6 - 8.0) 07/07/18 12:50 Ur Specific [place] 1.015 (1.005-1.030) 07/07/18 12:50 Urine Protein NEGATIVE mg/dL (NEGATIVE) 07/07/18 12:50 Urine Glucose (UA) NEGATIVE mg/dL (NEGATIVE) 07/07/18 12:50 Urine Ketones NEGATIVE mg/dL (NEGATIVE) 07/07/18 12:50 Urine Blood NEGATIVE (NEGATIVE) 07/07/18 12:50 Urine Nitrate NEGATIVE (NEGATIVE) 07/07/18 12:50 Urine Bilirubin NEGATIVE (NEGATIVE) 07/07/18 12:50 Urine Urobilinogen 0.2 E.U./dL (0.2 - 1.0) 07/07/18 12:50 Ur Leukocyte Esterase TRACE (NEGATIVE) H 07/07/18 12:50 Urine RBC 0-2 /hpf (0-5) 07/07/18 12:50 Urine WBC 6-10 /hpf (0-5) H 07/07/18 12:50 Ur Epithelial Cells MODERATE /lpf (FEW) 07/07/18 12:50 Urine Bacteria 2+ /hpf (NONE SEEN) H 07/07/18 12:50 Urine Opiates Screen NEGATIVE (NEGATIVE) 07/07/18 12:50 Urine Methadone Screen NEGATIVE (NEGATIVE) 07/07/18 12:50 Ur Barbiturates Screen NEGATIVE (NEGATIVE) 07/07/18 12:50 Ur Tricyclics Screen NEGATIVE (NEGATIVE) 07/07/18 12:50 Ur Phencyclidine Scrn NEGATIVE (NEGATIVE) 07/07/18 12:50 Amphetamines Screen NEGATIVE (NEGATIVE) 07/07/18 12:50 U Methamphetamines Scrn NEGATIVE (NEGATIVE) 07/07/18 12:50 U Benzodiazepines Scrn NEGATIVE (NEGATIVE) 07/07/18 12:50 U Cocaine Metab Screen NEGATIVE (NEGATIVE) 07/07/18 12:50 U Cannabinoids Screen NEGATIVE (NEGATIVE) 07/07/18 12:50 - Physical Exam Vitals and I&O: Vital Signs Temp 97.8 F 07/13/18 10:38 Pulse 68 07/13/18 10:38 Resp 18 07/13/18 10:38 BP 126/60 07/13/18 09:03 Pulse Ox 97 07/13/18 10:38 Intake & Output 07/12/18 07/13/18 07/13/18 18:59 06:59 18:59 Intake Total 120 Balance 120 Intake: Oral 120 Other: # Voids 3 # Bowel Movements 2 Active Medications: Current Medications Escitalopram Oxalate (Lexapro) 5 mg PO DAILY [facility]; Protocol Stop: 09/09/18 08:59 Last Admin: 07/13/18 09:03 Dose: 5 mg Furosemide (Lasix) 40 mg PO DAILY [facility] Stop: 09/06/18 08:59 Last Admin: 07/13/18 09:03 Dose: 40 mg Insulin Aspart (Novolog Insulin Sliding Scale) 0 units SUBQ ACHS [facility]; Protocol Stop: 09/05/18 20:59 Last Admin: 07/13/18 06:40 Dose: Not Given Insulin Detemir (Levemir Insulin) 10 units SUBQ DAILY [facility] Stop: 09/06/18 08:59 Last Admin: 07/13/18 09:04 Dose: 10 unit Lorazepam (Ativan) 0.5 mg PO Q6HR PRN; Protocol PRN Reason: Agitation Stop: 09/05/18 19:26 Magnesium Hydroxide (Milk Of Magnesia) 30 ml PO HS PRN PRN Reason: Constipation Stop: 09/10/18 22:16 Last Admin: 07/12/18 22:46 Dose: 30 ml Memantine (Namenda) 5 mg PO DAILY [facility] Stop: 09/06/18 08:59 Last Admin: 07/13/18 09:03 Dose: 5 mg Metformin HCl (Glucophage) 850 mg PO BID [facility] Stop: 09/06/18 08:59 Last Admin: 07/13/18 09:03 Dose: 850 mg Nitrofurantoin Macrocrystals (Macrobid) 100 mg PO BID [facility]; Protocol Stop: 07/17/18 08:59 Last Admin: 07/13/18 09:03 Dose: 100 mg Potassium Chloride (Klor-Con) 10 meq PO DAILY [facility] Stop: 09/06/18 08:59 Last Admin: 07/13/18 09:03 Dose: 10 meq General: demented HEENT: NC/AT Neck: Supple Lungs: CTAB Cardiovascular: RRR Abdomen: soft, non-tender Extremities: clear, edema
--- NOTE | 2018-07-13 20:40 | Progress Notes ---
DATE: 07/13/2018 SUBJECTIVE: Staff was spoken to. The patient is interviewed. Mood is noted to be anxious. Affect is appropriate. Not suicidal or homicidal. Insight and judgment are noted to be improving. Impulse control is noted to be fair. No side effects to the medications are noted. The patient has been able to verbalize the concerns rather than to act out. ASSESSMENT: The patient is stabilizing. PLAN: To discharge the patient today for followup at [place]. JOB# [id number]
== END 2018-07-13 14:30 | DRG 885 ==
LOC: ER 12:18 → GERO2 15:55
PROVIDERS: ADMIT Psychiatry & Neurology Psychiatry; ATTEND Psychiatry & Neurology Psychiatry
DX: F29 Unspecified psychosis not due to a substance or known physiological condition (principal); F03.91 Unspecified dementia, unspecified severity, with behavioral disturbance; N39.0 Urinary tract infection, site not specified; E11.9 Type 2 diabetes mellitus without complications; M19.90 Unspecified osteoarthritis, unspecified site; I10 Essential (primary) hypertension; Z87.440 Personal history of urinary (tract) infections
CPT/HCPCS: 36415-UA; 80053-TC; 80061-TC; 80307; 81001-TC; 82948-90; 83036-90; 83735-TC; 84100-TC; 84443-TC; 85025-TC; 87086-90; J1815; Z7610